=== PATIENT | male | born 2000 | race Caucasian/White ===

== ENCOUNTER 2021-06-06 20:14 | Emergency (ER) | payer OTHER, SELFPAY ==
[2021-06-06] MEDS ORDERED: TETRACAINE HCL 0.5% 4ML OPTH ONE (21:50)
[2021-06-06] MEDS ORDERED: FLUORESCEIN SODIUM 1 MG/WRAP ONE (21:50)
[2021-06-06] MEDS ORDERED: GENTAMICIN 0.3% OPTH DROP 5ML ONE (22:17)
[2021-06-06] MEDS ORDERED: TOBRAMYCIN SULF 0.3% OPTH OINT ONE (22:19)
--- NOTE | 2021-06-06 22:24 | EDPHYS ---
Physician Documentation [facility] Name: Moi Beaulieu Age: 20 yrs Sex: Male : 2000 Arrival Date: 06/06/2021 Time: 20:21 Bed 23 Private MD: ED Physician Ivan Rush HPI: 06/06 22:16 This 20 yrs old Male presents to ER via Ambulatory with complaints of Foreign niecy Body In Eye. 22:16 The patient sustained FB. Onset: The symptoms/episode began/occurred 3 hour(s) ago. niecy Duration: the symptoms are continuous. Aggravated by opening eye. Associated signs and symptoms: Pertinent positives: None. Pertinent negatives: None. Patient does not utilize any form of vision correction. Severity of symptoms: At their worst the symptoms were moderate in the emergency department the symptoms are unchanged. The patient has not experienced similar symptoms in the past. Historical: - Allergies: 20:33 No Known Allergies; ld1 - Home Meds: 20:33 None [Active]; ld1 - PMHx: 20:33 None; ld1 - PSHx: 20:33 Appendectomy; Tonsillectomy; ld1 - Immunization history:: Adult Immunizations up to date, Client reports having NOT received the Covid vaccine. - Social history:: Smoking status: Patient reports the use of cigarette tobacco products, smokes one pack cigarettes per day. Patient uses alcohol, occasionally. - Family history:: not pertinent. ROS: 22:16 Constitutional: Negative for fever, chills, and weight loss, ENT: Negative for injury, niecy pain, and discharge, Neck: Negative for injury, pain, and swelling, Cardiovascular: Negative for chest pain, palpitations, and edema, Respiratory: Negative for shortness of breath, cough, wheezing, and pleuritic chest pain, Abdomen/GI: Negative for abdominal pain, nausea, vomiting, diarrhea, and constipation, Back: Negative for injury and pain, : Negative for injury, bleeding, discharge, and swelling, MS/Extremity: Negative for injury and deformity, Skin: Negative for injury, rash, and discoloration, Neuro: Negative for headache, weakness, numbness, tingling, and seizure, Psych: Negative for depression, anxiety, suicide ideation, homicidal ideation, and hallucinations, Allergy/Immunology: Negative for hives, rash, and allergies, Endocrine: Negative for neck swelling, polydipsia, polyuria, polyphagia, and marked weight changes, Hematologic/Lymphatic: Negative for swollen nodes, abnormal bleeding, and unusual bruising. 22:16 Eyes: Positive for foreign body sensation. Exam: 22:16 Constitutional: This is a well developed, well nourished patient who is awake, alert, niecy and in no acute distress. Head/Face: Normocephalic, atraumatic. ENT: Nares patent. No nasal discharge, no septal abnormalities noted. Tympanic membranes are normal and external auditory canals are clear. Oropharynx with no redness, swelling, or masses, exudates, or evidence of obstruction, uvula midline. Mucous membranes moist. Neck: Trachea midline, no thyromegaly or masses palpated, and no cervical lymphadenopathy. Supple, full range of motion without nuchal rigidity, or vertebral point tenderness. No Meningismus. Chest/axilla: Normal chest wall appearance and motion. Nontender with no deformity. No lesions are appreciated. Cardiovascular: Regular rate and rhythm with a normal S1 and S2. No gallops, murmurs, or rubs. Normal PMI, no JVD. No pulse deficits. Respiratory: Lungs have equal breath sounds bilaterally, clear to auscultation and percussion. No rales, rhonchi or wheezes noted. No increased work of breathing, no retractions or nasal flaring. Abdomen/GI: Soft, non-tender, with normal bowel sounds. No distension or tympany. No guarding or rebound. No evidence of tenderness throughout. Back: No spinal tenderness. No costovertebral tenderness. Full range of motion. Male : Normal genitalia with no discharge or lesions. Skin: Warm, dry with normal turgor. Normal color with no rashes, no lesions, and no evidence of cellulitis. MS/ Extremity: Pulses equal, no cyanosis. Neurovascular intact. Full, normal range of motion. Neuro: Awake and alert, GCS 15, oriented to person, place, time, and situation. Cranial nerves II-XII grossly intact. Motor strength 5/5 in all extremities. Sensory grossly intact. Cerebellar exam normal. Normal gait. Psych: Awake, alert, with orientation to person, place and time. Behavior, mood, and affect are within normal limits. 22:16 Eyes: Corneas: foreign body, on the left, a piece of metal. Vital Signs: 20:33 BP 146 / 104; Pulse 120; Resp 20; Temp 99.1(TE); Pulse Ox 97% on R/A; Weight 113.4 kg; ld1 Height 5 ft. 9 in. (175.26 cm); Pain 7/10; 22:51 BP 148 / 97; Pulse 96; Resp 18; Pulse Ox 97% on R/A; jb4 20:33 Body Mass Index 36.92 (113.40 kg, 175.26 cm) ld1 Procedures: 22:21 Foreign Body Removal: dirt, a piece of metal, from the left eye, cornea without use of niecy slit lamp by needle, Dressing: eye pad was placed, The patient tolerated the removal well. MDM: 21:11 Patient medically screened. niecy 22:21 Differential diagnosis: Corneal abrasion of Corneal ulcer of Foreign body in left eye. niecy Data reviewed: vital signs, nurses notes. Data interpreted: monitoring manager: not applicable for this patient encounter. rate is 120 beats/min, rhythm is regular, Pulse oximetry: on room air is 97 %. Counseling: I had a detailed discussion with the patient and/or guardian regarding: the historical points, exam findings, and any diagnostic results supporting the discharge/admit diagnosis, lab results. 06/06 21:49 Order name: Eye Tray; Complete Time: 21:49 [facility] 06/06 21:49 Order name: Fluoresene Opth strip; Complete Time: 21:49 [facility] 06/06 22:23 Order name: Misc. Order: PATCH EYE; Complete Time: 22:45 niecy Administered Medications: 22:10 Drug: Fluorescein Strip 1 strip {Note: administered by ED provider.} Route: Ophthalmic; jb4 Site: left eye; 22:10 Drug: Tetracaine Drops 0.5 % 1 drops {Note: administered by ED provider.} Route: jb4 Ophthalmic; Site: left eye; 22:45 Drug: Tobramycin Ointment (0.3 %) 1 application Route: Ophthalmic; Site: left eye; jb4 22:49 Drug: [place] (HYDROcodone-acetaminophen) 10 mg-325 mg 1 tabs Route: PO; jb4 22:50 Follow up: Response: Medication administered at discharge. jb4 Disposition Summary: 06/06/21 22:24 Discharge Ordered Location: Home niecy Problem: new niecy Symptoms: have improved niecy Condition: Stable niecy Diagnosis - Foreign body in cornea, left eye - removed niecy Followup: niecy - With: Private Physician - When: Tomorrow - Reason: Recheck today's complaints, Continuance of care, Re-evaluation by your physician Followup: niecy - With: Krish Ocampo MD - When: Tomorrow - Reason: Recheck today's complaints, Re-evaluation by your physician Discharge Instructions: - Discharge Summary Sheet niecy - Eye Foreign Body [facility] Forms: - Medication Reconciliation Form niecy - Thank You Letter niecy - Antibiotic Education niecy - Prescription Opioid Use niecy Prescriptions: - Tylenol-Codeine #3 300 mg-30 mg Oral - take 2 tablet by ORAL route every 6 hours; 15 tablet; Refills: 0, Product niecy Selection Permitted Signatures: Ivan Rush MD MD cha Bryson, James, RN RN jb4 Sirena Castro RN RN ld1
--- NOTE | 2021-06-06 22:24 | ER ---
Nurse's Notes [facility] Name: Moi Beaulieu Age: 20 yrs Sex: Male : 2000 Arrival Date: 06/06/2021 Time: 20:21 Bed 23 Private MD: Diagnosis: Foreign body in cornea, left eye-removed Presentation: 06/06 20:33 Chief complaint: Patient states: Working outside underneath the trailer, moved ld1 something and dirt/scrap metal got in my left eye. I am not sure what it is. Coronavirus screen: At this time, the client does not indicate any symptoms associated with coronavirus-19. Ebola Screen: No symptoms or risks identified at this time. Initial Sepsis Screen: Does the patient meet any 2 criteria? No. Patient's initial sepsis screen is negative. Does the patient have a suspected source of infection? No. Patient's initial sepsis screen is negative. Risk Assessment: Do you want to hurt yourself or someone else? Patient reports no desire to harm self or others. Onset of symptoms was June 06, 2021. 20:33 Method Of Arrival: Ambulatory ld1 20:33 Acuity: MALCOLM 4 ld1 Triage Assessment: 20:33 General: Appears in no apparent distress. uncomfortable, Behavior is calm, cooperative, ld1 appropriate for age. Pain: Complains of pain in left eye Pain does not radiate. Pain currently is 7 out of 10 on a pain scale. Quality of pain is described as stabbing, Pain began suddenly. EENT: Eyes are tearing on iris of left eye with foreign body noted in iris of left eye. Neuro: Level of Consciousness is awake, alert, obeys commands, Oriented to person, place, time, situation. Respiratory: Airway is patent Respiratory effort is even, unlabored, Respiratory pattern is regular, symmetrical. GI: Abdomen is round non-distended. Historical: - Allergies: 20:33 No Known Allergies; ld1 - Home Meds: 20:33 None [Active]; ld1 - PMHx: 20:33 None; ld1 - PSHx: 20:33 Appendectomy; Tonsillectomy; ld1 - Immunization history:: Adult Immunizations up to date, Client reports having NOT received the Covid vaccine. - Social history:: Smoking status: Patient reports the use of cigarette tobacco products, smokes one pack cigarettes per day. Patient uses alcohol, occasionally. - Family history:: not pertinent. Screenin:45 Abuse screen: Denies threats or abuse. Nutritional screening: No deficits noted. jb4 Tuberculosis screening: No symptoms or risk factors identified. Fall Risk None identified. Assessment: 21:45 General: Appears in no apparent distress. uncomfortable, Behavior is calm, cooperative, jb4 appropriate for age, Pt report blurry vision.. Pain: Complains of pain in left eye Pain does not radiate. Pain currently is 10 out of 10 on a pain scale. Neuro: Level of Consciousness is awake, alert, obeys commands, Oriented to person, place, time, situation. Cardiovascular: Patient's skin is warm and dry. Respiratory: Airway is patent Respiratory effort is even, unlabored, Respiratory pattern is regular, symmetrical. GI: No signs and/or symptoms were reported involving the gastrointestinal system. : No signs and/or symptoms were reported regarding the genitourinary system. EENT: Sclera/Cornea are reddened in outer aspect of conjuctiva of left eye, iris of left eye and inner aspect of conjunctiva of left eye. Derm: Skin is intact, Skin is pink, warm \T\ dry. 22:51 Reassessment: Patient appears in no apparent distress at this time. Patient and/or jb4 family updated on plan of care and expected duration. Pain level reassessed. Patient is alert, oriented x 3, equal unlabored respirations, skin warm/dry/pink. Pt reports blurry vision. Informed that per ER provider blurry vision in the left eye is to be expected to where the foreign body was located. Vital Signs: 20:33 BP 146 / 104; Pulse 120; Resp 20; Temp 99.1(TE); Pulse Ox 97% on R/A; Weight 113.4 kg; ld1 Height 5 ft. 9 in. (175.26 cm); Pain 7/10; 22:51 BP 148 / 97; Pulse 96; Resp 18; Pulse Ox 97% on R/A; jb4 20:33 Body Mass Index 36.92 (113.40 kg, 175.26 cm) ld1 ED Course: 20:21 Patient arrived in ED. ja2 20:33 Arm band placed on right wrist. ld1 20:35 Triage completed. ld1 21:11 Ivan Rush MD is Attending Physician. niecy 21:28 Randy Karimi, RN is Primary Nurse. jb4 21:45 Patient has correct armband on for positive identification. Placed in gown. Bed in low jb4 position. Call light in reach. Side rails up X 1. Pulse ox on. NIBP on. 22:10 Assist provider with eye exam of left eye. using fluorescein stain, Performed by Ivan sanches4 Victor Manuel MARTINEZ Dressed with eye patch Patient tolerated well. 22:10 Patient did not have IV access during this emergency room visit. jb4 22:23 Krish Ocampo MD is Referral Physician. [facility] Administered Medications: 22:10 Drug: Fluorescein Strip 1 strip {Note: administered by ED provider.} Route: Ophthalmic; jb4 Site: left eye; 22:10 Drug: Tetracaine Drops 0.5 % 1 drops {Note: administered by ED provider.} Route: jb4 Ophthalmic; Site: left eye; 22:45 Drug: Tobramycin Ointment (0.3 %) 1 application Route: Ophthalmic; Site: left eye; jb4 22:49 Drug: [place] (HYDROcodone-acetaminophen) 10 mg-325 mg 1 tabs Route: PO; jb4 22:50 Follow up: Response: Medication administered at discharge. jb4 Outcome: 22:24 Discharge ordered by . [facility] 22:53 Discharged to home ambulatory, with family. jb4 22:53 Condition: stable 22:53 Discharge instructions given to patient, Instructed on discharge instructions, follow up and referral plans. medication usage, Demonstrated understanding of instructions, follow-up care, medications, Prescriptions given X 2. 22:54 Patient left the ED. jb4 Signatures: Ivan Rush MD MD cha Bryson, James, RN RN jb4 Sirena Castro, PHIL RN ld1 Elsy Pappas
[2021-06-06] MEDS ORDERED: HYDROCODONE/APAP 10/325 TAB ONE (22:49)
[2021-06-07 10:58] VITALS: TEMP 99.1; O2SAT 97
[2021-06-07 11:00] VITALS: BP 148/97
== END 2021-06-06 22:54 | disposition home or self-care (01) ==
LOC: ER 20:14
PROC: 08C9XZZ Extirpation of Matter from Left Cornea, External Approach (ICD-10-PCS; principal; 2021-06-06)
DX: T15.02XA Foreign body in cornea, left eye, initial encounter (principal); F17.210 Nicotine dependence, cigarettes, uncomplicated
CPT/HCPCS: 99284

== ENCOUNTER 2022-01-29 01:54 | Emergency (ER) | payer SELFPAY ==
[2022-01-29 02:37] LABS: Absolute Lymphocytes (CBC) 2.3 K/uL (0.7-4.9); Hematocrit 48.8 % (39.6-49.0); Lymphocytes % 13.9 % (15.3-44.8); MCV 94.8 fL (80-100); MPV 7.9 fL (7.6-11.3); RBC Red Blood Cell Count 5.15 M/uL (4.33-5.43)
[2022-01-29 02:42] LABS: Potassium 3.3 mmol/L (3.5-5.1)
[2022-01-29] MEDS ORDERED: LIDOCAINE 1% MPF 5 ML VIAL ONE (02:53)
[2022-01-29] MEDS ORDERED: KETOROLAC 30 MG/ML INJ ONE (04:26)
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
[2022-01-29 06:05] VITALS: TEMP 97.8
[2022-01-29 06:06] VITALS: BP 114/59; O2SAT 99
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
== END 2022-01-29 06:01 | disposition home or self-care (01) ==
LOC: ER 01:54
PROC: 2W3DX1Z Immobilization of Left Lower Arm using Splint (ICD-10-PCS; principal; 2022-01-29)
PROC: 08QNXZZ Repair Right Upper Eyelid, External Approach (ICD-10-PCS; 2022-01-29)
DX: S52.502A Unspecified fracture of the lower end of left radius, initial encounter for closed fracture (principal); S01.111A Laceration without foreign body of right eyelid and periocular area, initial encounter; V49.40XA Driver injured in collision with unspecified motor vehicles in traffic accident, initial encounter; Z91.030 Bee allergy status; F17.210 Nicotine dependence, cigarettes, uncomplicated
CPT/HCPCS: 36415; 70450; 71260; 72125; 74177; 80048; 82565; 85025; 86850; 86900; 86901; 96374; 99284; J2001; Q9967

== ENCOUNTER 2023-07-14 16:23 | Emergency (ER) | payer SELFPAY ==
[2023-07-14] MEDS ORDERED: LORAZEPAM 1 MG TABLET ONE (16:35)
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
--- NOTE | 2023-07-14 17:30 | ER ---
Nurse's Notes [facility] Name: Moi Beaulieu Age: 22 yrs Sex: Male : 2000 Arrival Date: 07/14/2023 Time: 16:23 Bed 10 Private MD: Diagnosis: Anxiety disorder, unspecified Presentation: 07/13 16:30 Chief complaint: Patient states: WHOLE BODY TINGLING, WORST N ARMS/HANDS. Coronavirus bp screen: At this time, the client does not indicate any symptoms associated with coronavirus-19. Ebola Screen: No symptoms or risks identified at this time. Initial Sepsis Screen: Does the patient meet any 2 criteria? No. Patient's initial sepsis screen is negative. Does the patient have a suspected source of infection? No. Patient's initial sepsis screen is negative. Risk Assessment: Do you want to hurt yourself or someone else? Patient reports no desire to harm self or others. Onset of symptoms was July 14, 2023 at 13:00. 16:30 Method Of Arrival: Ambulatory bp 16:30 Acuity: MALCOLM 4 bp Triage Assessment: 16:31 General: Appears distressed, Behavior is cooperative, appropriate for age, agitated, bp anxious. Pain: Denies pain. Neuro: Level of Consciousness is awake, alert, obeys commands, Oriented to Appropriate for age. Cardiovascular: Rhythm is sinus tachycardia. Respiratory: Respiratory pattern is tachypnea. GI: No signs and/or symptoms were reported involving the gastrointestinal system. : No signs and/or symptoms were reported regarding the genitourinary system. Historical: - Allergies: 16:31 Bees; bp - PSHx: 16:31 Appendectomy; Tonsillectomy; bp - Immunization history:: Adult Immunizations up to date. - Infectious Disease History:: Denies. - Social history:: Smoking status: unknown. Screenin:11 [facility] ED Fall Risk Assessment (Adult) History of falling in the last 3 months, ph including since admission No falls in past 3 months (0 pts) Confusion or Disorientation No (0 pts) Intoxicated or Sedated No (0 pts) Impaired Gait No (0 pts) Mobility Assist Device Used No (0 pt) Altered Elimination No (0 pt) Score/Fall Risk Level 0 - 2 = Low Risk Oriented to surroundings, Maintained a safe environment, Hourly rounding (assess needs \T\ fall precautionary measures) done. Abuse screen: Denies threats or abuse. Denies injuries from another. Nutritional screening: No deficits noted. Tuberculosis screening: No symptoms or risk factors identified. Assessment: 16:55 General: Appears in no apparent distress. Behavior is cooperative, anxious. Pain: ph Denies pain. Neuro: Level of Consciousness is awake, alert, obeys commands, Oriented to person, place, time, situation. Neuro: Reports paresthesias in face, right arm and left arm. Cardiovascular: Capillary refill < 3 seconds in bilateral fingers Patient's skin is warm and dry. Respiratory: Airway is patent Respiratory pattern is tachypnea. Derm: Skin is pink, warm \T\ dry. 17:31 Reassessment: Patient appears in no apparent distress at this time. Patient and/or ph family updated on plan of care and expected duration. Pain level reassessed. Patient is alert, oriented x 3, equal unlabored respirations, skin warm/dry/pink. Pt states that he is starting to feel better, declining blood work at this time. Vital Signs: 16:30 BP 200 / 101; Pulse 132; Resp 28; Temp 98.3; Pulse Ox 100% ; Weight 136.08 kg; Height 5 bp ft. 10 in. ; 17:12 BP 172 / 91; Pulse 90; Resp 22; Pulse Ox 100% on R/A; ph 17:31 BP 154 / 101; Pulse 87; Resp 18; Pulse Ox 99% on R/A; ph 16:30 Body Mass Index 43.05 (136.08 kg, 177.8 cm) bp ED Course: 16:24 Patient arrived in ED. mr 16:25 [facility] jh7 16:25 Atif Suh MD is Attending Physician. jh7 16:31 Triage completed. bp 16:31 Arm band placed on. bp 16:33 Elizabeth Adams, RN is Primary Nurse. ph 17:11 Patient has correct armband on for positive identification. Bed in low position. Call ph light in reach. Side rails up X 1. Door closed. Noise minimized. Warm blanket given. 17:11 No provider procedures requiring assistance completed. Patient did not have IV access ph during this emergency room visit. Administered Medications: 16:41 Drug: LORazepam PO 2 mg PO once Route: PO; ph 17:48 Follow up: Response: No adverse reaction; Anxiety decreased ph 17:49 Follow up: Response: RASS: Alert and Calm (0) ph Medication: 17:12 VIS not applicable for this client. ph Outcome: 17:29 Discharge ordered by MD. spivey 17:48 Discharged to home ambulatory, with significant other, ph 17:48 Condition: good 17:48 Discharge instructions given to patient, Instructed on discharge instructions, follow up and referral plans. Demonstrated understanding of instructions, follow-up care, 17:49 Patient left the ED. ph Signatures: Jaz Pineda, Reg Reg mr Elizabeth Adams, RN RN ph Sam Andrade, RN RN Natalie Welch, [employer] ANNA jhLalitha
[2023-07-14 18:13] VITALS: BP 154/101; TEMP 98.3; O2SAT 99
--- NOTE | 2023-07-15 11:00 | EKG ---
Test Date: 2023-07-14 Test Time: 16:57:29 Machine Repairer: PH MEASUREMENT RESULTS: Intervals: Rate: 87 OR: 142 QRSD: 82 QT: 372 QTc: 447 [place]: P: 55 OR: 142 QRS: 42 T: 41 INTERPRETIVE STATEMENTS: Sinus rhythm with marked sinus arrhythmia Otherwise normal ECG No previous ECG available for comparison Electronically Signed On 07-15-23 10:59:06 CDT by Wilfredo Rosales
== END 2023-07-14 17:49 | disposition home or self-care (01) ==
LOC: ER 16:23
DX: F41.9 Anxiety disorder, unspecified (principal)
CPT/HCPCS: 93005; 99283

== ENCOUNTER 2024-12-10 03:07 | Emergency (ER) | payer SELFPAY ==
[2024-12-10] MEDS ORDERED: LORazepam 2 MG/ML VIAL ONE (03:18)
[2024-12-10] MEDS ORDERED: NA CHLORIDE 0.9% 1,000 ML ONE (03:19)
[2024-12-10 03:52] LABS: Anion Gap 7.6 mEq/L (5.0-15.0); BUN Blood Urea Nitrogen 15.0 mg/dL (7-18); Glucose Level 105.0 mg/dL (74-106); Potassium 3.6 mEq/L (3.5-5.1)
[2024-12-10 04:08] LABS: Hemoglobin 16.7 g/dL (13.6-17.9); Nucleated RBC Absolute Count 0.0 (0-0)
[2024-12-10 04:13] LABS: Absolute Lymphocytes (CBC) 2.1 K/uL (0.7-4.9); Hematocrit 48.2 % (39.6-49.0); MCH 32.4 pg (27.0-35.0); MCHC 34.6 g/dL (32.0-36.0); MCV 93.5 fL (80-100); MPV 8.6 fL (7.6-11.3); Nucleated Red Blood Cells % 0.1 % (0-0); RBC Red Blood Cell Count 5.15 M/uL (4.33-5.43); White Blood Count 15.50 thou/uL (4.3-10.9)
--- NOTE | 2024-12-10 05:07 | EDPHYS ---
Physician Documentation [facility] Name: Moi Beaulieu Age: 24 yrs Sex: Male : 2000 Arrival Date: 12/10/2024 Time: 03:07 Bed 8 Private MD: ED Physician Reagan Llanos HPI: 12/10 03:17 This 24 yrs old Male presents to ER via EMS with complaints of methamphetamine abuse. tt7 03:17 Patient reports that he is "not in the right frame of mind" after abusing tt7 methamphetamine, he is feeling very anxious, states that he has not eaten all day, history is limited as patient is a poor historian and appears under the influence of methamphetamine. Historical: - Allergies: 03:12 Bees; cc6 - PSHx: 03:12 Appendectomy; Tonsillectomy; cc6 - Immunization history:: Adult Immunizations unknown. - Infectious Disease History:: Denies. - Social history:: Smoking status: Patient reports the use of cigarette tobacco products, unknown amount Patient uses alcohol, street drugs, marijuana, Methamphetamine (Meth). ROS: 03:20 Constitutional: negative for fever. Cardiovascular: negative for chest pain. tt7 Respiratory: negative for shortness of breath. Abdomen/GI: negative for abdominal pain, nausea, vomiting, diarrhea. MS/Extremity: negative for injury and deformity. Skin: negative for rash. Exam: 03:20 Constitutional: vital signs reviewed, well appearing. Head/Face: normocephalic, tt7 atraumatic. Eyes: Pupils 6 mm bilaterally and equal and reactive to light, no conjunctival injection, anicteric sclerae. ENT: mucus membranes moist. Neck: trachea midline, no JVD, no meningismus. Chest/axilla: normal chest wall appearance and motion, nontender, no crepitus. Cardiovascular: Tachycardic, regular rhythm, no murmurs, no rubs, no lower extremity edema. Respiratory: normal respiratory effort, no accessory muscle use, lungs CTAB. Abdomen/GI: Nondistended Back: normal ROM. Skin: warm, dry, intact, normal turgor, normal color, no rash. MS/ Extremity: normal ROM of extremities, no gross deformities. Neuro: alert and oriented, normal speech, follows commands, no focal neurologic deficits. Psych: Very anxious and somewhat paranoid Vital Signs: 03:09 BP 149 / 119; Pulse 101; Resp 22; Temp 97.7; Pulse Ox 98% on R/A; Weight 96.5 kg; cc6 Height 5 ft. 10 in. ; Pain 0/10; 04:42 BP 125 / 58; Pulse 82; Resp 18; Pulse Ox 97% on R/A; cc6 03:09 Body Mass Index 30.53 (96.50 kg, 177.8 cm) cc6 03:09 Pain Scale: Adult cc6 MDM: 03:10 Medical Screening Exam initiated tt7 03:21 Differential Diagnosis Methamphetamine abuse, sympathomimetic intoxication, acute renal tt7 failure, rhabdomyolysis, anemia, metabolic acidosis, anxiety. Data reviewed: vital signs, nurses notes, lab test result(s). 12/10 03:16 Order name: CBC with Diff; Complete Time: 04:16 tt7 12/10 03:16 Order name: BMP; Complete Time: 03:56 tt7 12/10 03:16 Order name: CK; Complete Time: 03:56 tt7 Administered Medications: 03:25 Drug: Ativan IVP 1 mg IVP once Route: IVP; Site: right antecubital; cc6 04:44 Follow up: Response: No adverse reaction cc6 03:25 Drug: Droperidol IVP 1.25 mg IVP once Route: IVP; Site: right antecubital; cc6 04:43 Follow up: Response: No adverse reaction cc6 03:25 Drug: NS 0.9% IV 1000 ml IV at 1 bolus Per protocol; to be given as a bolus over 60 cc6 minutes Route: IV; Rate: 1 bolus; Site: right antecubital; 05:19 Follow up: Response: No adverse reaction; IV Status: Completed infusion cc6 Disposition Summary: 12/10/24 05:06 Discharge Ordered Notes: Location: Home tt7 Problem: new tt7 Symptoms: are resolved tt7 Condition: Stable tt7 Diagnosis - Other stimulant abuse with stimulant-induced anxiety disorder tt7 - Panic disorder [episodic paroxysmal anxiety] without agoraphobia tt7 - Adverse effect of amphetamines tt7 Followup: tt7 - With: Emergency Department - When: As needed - Reason: Followup: tt7 - With: Private Physician - When: 1 - 2 days - Reason: Recheck today's complaints, Re-evaluation by your physician Discharge Instructions: - Discharge Summary Sheet tt7 - Methamphetamines Use Disorder tt7 - Panic Attack, [id number] tt7 - Illegal Drug Use Information, Adult tt7 - Recovering From Addiction tt7 Forms: - Medication Reconciliation Form tt7 - Antibiotic Education tt7 - Prescription Opioid Use tt7 - Patient Portal Instructions tt7 - Leadership Thank You Letter tt7 Addendum: 12/13/2024 18:01 Addendum: Vital stable, physical exam reassuring, clinical presentation consistent with t t7 anxiety exacerbated by methamphetamine abuse, patient was treated with IV medications, was reassessed and resting comfortably with resolution of symptoms, after completion of the patient's emergency department evaluation, I do not suspect a life-threatening or disabling process. Patient is medically stable and not in need of emergent medical intervention. I had a detailed discussion with the patient regarding the historical points, exam findings, emergency department evaluation, diagnostic results, and the discharge diagnosis. I instructed the patient on outpatient management of their condition. I discussed the need for outpatient follow-up with a primary care physician. I informed the patient on return precautions, including the need to return to the ED if symptoms do not improve, worsen, or if there are any questions or concerns that arise at home. The patient was discharged in stable condition. Co-signature as Attending Physician, Reagan Llanos DO. Signatures: Dispatcher [employer] Cecilia Copeland RN RN cc6 Reagan Llanos DO DO tt7
--- NOTE | 2024-12-10 05:07 | ER ---
Nurse's Notes [facility] Name: Moi Beaulieu Age: 24 yrs Sex: Male : 2000 Arrival Date: 12/10/2024 Time: 03:07 Bed 8 Private MD: Diagnosis: Other stimulant abuse with stimulant-induced anxiety disorder;Panic disorder [episodic paroxysmal anxiety] without agoraphobia;Adverse effect of amphetamines Presentation: 12/10 03:09 Chief complaint: EMS states: PT WAS FOUND WANDERING THE STREETS BY EMS. PT STATED THAT cc6 HE TOOK AN UNKNOWN AMOUNT OF METH. STATES PATIENT HAS SEVERE METH INDUCED ANXIETY. Coronavirus screen: Client denies travel out of the [place] in the last 14 days. At this time, the client does not indicate any symptoms associated with coronavirus-19. Ebola Screen: No symptoms or risks identified at this time. Initial Sepsis Screen: Does the patient meet any 2 criteria? No. Patient's initial sepsis screen is negative. Does the patient have a suspected source of infection? No. Patient's initial sepsis screen is negative. Risk Assessment: Do you want to hurt yourself or someone else? Patient reports no desire to harm self or others. Onset of symptoms was December 10, 2024. 03:09 Method Of Arrival: EMS: [facility] cc6 03:09 Acuity: MALCOLM 3 cc6 Triage Assessment: 03:12 General: Appears uncomfortable, Behavior is anxious, crying, restless. Pain: Denies cc6 pain. EENT: No signs and/or symptoms were reported regarding the EENT system. Neuro: Level of Consciousness is awake, alert, obeys commands, Oriented to person, place, time, situation. Cardiovascular: Patient's skin is warm and dry. Respiratory: Airway is patent Respiratory effort is even, unlabored, Respiratory pattern is regular, symmetrical. GI: No signs and/or symptoms were reported involving the gastrointestinal system. : No signs and/or symptoms were reported regarding the genitourinary system. Derm: No signs and/or symptoms reported regarding the dermatologic system. Musculoskeletal: Range of motion: intact in all extremities. Historical: - Allergies: 03:12 Bees; cc6 - PSHx: 03:12 Appendectomy; Tonsillectomy; cc6 - Immunization history:: Adult Immunizations unknown. - Infectious Disease History:: Denies. - Social history:: Smoking status: Patient reports the use of cigarette tobacco products, unknown amount Patient uses alcohol, street drugs, marijuana, Methamphetamine (Meth). Screenin:14 [facility] ED Fall Risk Assessment (Adult) History of falling in the last 3 months, cc6 including since admission No falls in past 3 months (0 pts) Confusion or Disorientation No (0 pts) Intoxicated or Sedated No (0 pts) Impaired Gait No (0 pts) Mobility Assist Device Used No (0 pt) Altered Elimination No (0 pt) Score/Fall Risk Level 0 - 2 = Low Risk Oriented to surroundings, Maintained a safe environment, Educated pt \T\ family on fall prevention, incl call for assistance when getting out of bed. Abuse screen: Denies threats or abuse. Denies injuries from another. Nutritional screening: No deficits noted. Tuberculosis screening: No symptoms or risk factors identified. Assessment: 03:09 Reassessment: SEE TRIAGE. cc6 04:42 Reassessment: Patient is alert, oriented x 3, equal unlabored respirations, skin cc6 warm/dry/pink. Patient is alert/active/playful, equal unlabored respirations, skin warm/dry/pink. Vital Signs: 03:09 BP 149 / 119; Pulse 101; Resp 22; Temp 97.7; Pulse Ox 98% on R/A; Weight 96.5 kg; cc6 Height 5 ft. 10 in. ; Pain 0/10; 04:42 BP 125 / 58; Pulse 82; Resp 18; Pulse Ox 97% on R/A; cc6 03:09 Body Mass Index 30.53 (96.50 kg, 177.8 cm) cc6 03:09 Pain Scale: Adult cc6 ED Course: 03:09 Patient arrived in ED. vk 03:09 Cecilia Healy, PHIL is Primary Nurse. cc6 03:10 Reagan Llanos DO is Attending Physician. tt7 03:12 Triage completed. cc6 03:12 Arm band placed on right wrist. cc6 03:14 Bed in low position. Call light in reach. Side rails up X2. Provided Education on: USE cc6 OF CALL LIGHT. 03:14 Inserted saline lock: 20 gauge in right antecubital area, using aseptic technique. cc6 05:18 IV discontinued, intact, bleeding controlled, No redness/swelling at site. Pressure cc6 dressing applied. 05:18 No provider procedures requiring assistance completed. cc6 Administered Medications: 03:25 Drug: Ativan IVP 1 mg IVP once Route: IVP; Site: right antecubital; cc6 04:44 Follow up: Response: No adverse reaction cc6 03:25 Drug: Droperidol IVP 1.25 mg IVP once Route: IVP; Site: right antecubital; cc6 04:43 Follow up: Response: No adverse reaction cc6 03:25 Drug: NS 0.9% IV 1000 ml IV at 1 bolus Per protocol; to be given as a bolus over 60 cc6 minutes Route: IV; Rate: 1 bolus; Site: right antecubital; 05:19 Follow up: Response: No adverse reaction; IV Status: Completed infusion cc6 Medication: 05:18 VIS not applicable for this client. cc6 Outcome: 05:06 Discharge ordered by tt7 05:18 Discharged to home ambulatory, cc6 05:18 Condition: stable 05:18 Discharge instructions given to patient, Instructed on discharge instructions, follow up and referral plans. Demonstrated understanding of instructions, follow-up care, 05:20 Patient left the ED. cc6 Signatures: Audrey Cervantes Cassandra, RN RN cc6 Reagan Llanos DO DO tt7
[2024-12-10 05:42] VITALS: TEMP 97.7
[2024-12-10 05:43] VITALS: BP 125/58; O2SAT 97
== END 2024-12-10 05:20 | disposition home or self-care (01) ==
LOC: ER 03:07
DX: F15.180 Other stimulant abuse with stimulant-induced anxiety disorder (principal); F41.0 Panic disorder [episodic paroxysmal anxiety]; T43.625A Adverse effect of amphetamines, initial encounter
CPT/HCPCS: 36415; 80048; 82550; 85025; 96361; 96374; 96375; 99284; J1790; J7030